=== PATIENT | male | born 1990 | race Caucasian/White ===

== ENCOUNTER → 2022-03-28 | Outpatient (CLI) | payer OTHER ==
--- NOTE | 2022-03-28 15:54 | Diagnostic Imaging Report ---
INDICATION: Pain. EXAMINATION: Left knee, 4 views, on 03/28/2022. FINDINGS: There is a small suprapatellar effusion. No fractures or dislocations are appreciated. An osseous fragment adjacent to the medial border of the patella has a chronic appearance. IMPRESSION: 1. Joint effusion with chronic findings as above. 2. Osseous fragment medial to the patella is likely chronic but clinical correlation for point tenderness is recommended. Dictated by: Dictated on workstation # [id number]
== END ==
LOC: ORTHO 15:07
PROVIDERS: ATTEND Orthopaedic Surgery
DX: M25.562 Pain in left knee (principal); M25.462 Effusion, left knee
CPT/HCPCS: 73564; G0463; 99213

== ENCOUNTER → 2022-04-30 | Outpatient (CLI) | payer OTHER | LOC: ORTHO 16:05 | PROVIDERS: ATTEND Orthopaedic Surgery | DX: S83.412D Sprain of medial collateral ligament of left knee, subsequent encounter (principal); X58.XXXD Exposure to other specified factors, subsequent encounter | CPT/HCPCS: 99213 ==

== ENCOUNTER → 2022-08-01 | Outpatient (CLI) | payer OTHER ==
--- NOTE | 2022-08-01 14:09 | Diagnostic Imaging Report ---
INDICATION: Left shoulder pain. FINDINGS: 3 views. Glenohumeral joint and AC joint shows good alignment. Joint spaces well-maintained. Articulating surfaces are smooth. No hypertrophic changes. No fractures. There are no soft tissue calcifications. IMPRESSION: Normal left shoulder. Dictated by: Dictated on workstation # [id number]
== END ==
LOC: ORTHO 09:10
PROVIDERS: ATTEND Orthopaedic Surgery
DX: M25.512 Pain in left shoulder (principal)
CPT/HCPCS: 73030; G0463; 99213

== ENCOUNTER → 2023-01-07 | Outpatient (CLI) | payer OTHER | LOC: ORTHO 09:00 | PROVIDERS: ATTEND Orthopaedic Surgery | DX: M75.112 Incomplete rotator cuff tear or rupture of left shoulder, not specified as traumatic (principal); Z98.890 Other specified postprocedural states | CPT/HCPCS: 99213 ==